=== PATIENT | male | born 1955 | race Caucasian/White ===

== ENCOUNTER 2024-11-08 13:03 | Emergency (ER) | payer OTHER, MEDICARE ==
[~2024-11-08] VITALS: Ht 177.8 cm; Wt 96.0 kg
[2024-11-08] MEDS ORDERED: LISINOPRIL5 MG PO (14:03)
[2024-11-08 15:35] VITALS: BP 149/93
== END 2024-11-08 15:36 | disposition home or self-care (01) ==
LOC: ED 13:03
DX: S01.01XA Laceration without foreign body of scalp, initial encounter (principal); I10 Essential (primary) hypertension; W18.30XA Fall on same level, unspecified, initial encounter; Y93.I9 Activity, other involving external motion
CPT/HCPCS: 12011; 99282